=== PATIENT | female | born 1950 | race Hispanic/Latino ===

== ENCOUNTER 2018-07-18 17:26 | Inpatient (IN) | payer MEDICARE ==
[~2018-07-18] VITALS: Ht 154.9 cm; Wt 48.8 kg
[2018-07-18] MEDS ORDERED: MORPHINE SULFATE 2 MG/ML 1ML SYG ONE ×2 (19:00→20:09)
[2018-07-18] MEDS ORDERED: ONDANSETRON HCL 4 MG/2 ML VIAL IV PRN (19:30)
[2018-07-18] MEDS ORDERED: MORPHINE SULFATE 2 MG/ML 1ML SYG IV PRN (19:30)
[2018-07-18] MEDS ORDERED: ONDANSETRON HCL 4 MG/2 ML VIAL ONE (20:08)
[2018-07-18] MEDS ORDERED: ZIPRASIDONE MESYLATE 20 MG/VIAL IM ONE (21:07)
[2018-07-18 21:40] VITALS: BP 104/52
[2018-07-18] MEDS ORDERED: TRAZ-185 PO (21:58)
[2018-07-18] MEDS ORDERED: DONE10TA8 PO (21:58)
[2018-07-18] MEDS ORDERED: MEMA10TA11 PO (21:58)
[2018-07-18 22:02] LABS: BASOPHILS % (AUTO) 0.8 % (0.0-5.0); EOSINOPHILS % (AUTO) 0.6 % (0.0-8.0); HEMATOCRIT 36.1 % (36-48); LYMPHOCYTES % (AUTO) 15.3 % (21.0-51.0); MEAN CORPUSCULAR HEMOGLOBIN 31.3 pg (27.0-33.0); MEAN CORPUSCULAR HGB CONC 33.8 g/dL (32.0-36.0); MEAN CORPUSCULAR VOLUME 92.6 fL (79-99); MONOCYTES % (AUTO) 7.8 % (3.0-13.0); NEUTROPHILS % (AUTO) 75.5 % (40.0-77.0); PLATELET COUNT (AUTO) 148 K/uL (130-400); RED CELL DISTRIBUTION WIDTH 14.2 % (11.0-15.5); WHITE BLOOD COUNT (AUTO) 7.4 K/uL (4.8-10.8)
[2018-07-18 22:09] LABS: CREATININE 0.7 mg/dL (0.5-1.5); POTASSIUM 3.6 mmol/L (3.5-5.1)
[2018-07-18] MEDS ORDERED: TRAZODONE HCL 50 MG TAB ONE (22:53)
[2018-07-18 23:15] VITALS: BP 127/58
[2018-07-19 03:20] VITALS: BP 141/64
[2018-07-19 07:48] LABS: MEAN CORPUSCULAR HEMOGLOBIN 32.3 pg (27.0-33.0); MEAN CORPUSCULAR HGB CONC 34.4 g/dL (32.0-36.0); MEAN CORPUSCULAR VOLUME 93.8 fL (79-99); PLATELET COUNT (AUTO) 132 K/uL (130-400); RED BLOOD CELL COUNT(AUTO) 3.94 MIL/uL (4.00-5.50); RED CELL DISTRIBUTION WIDTH 14.2 % (11.0-15.5); WHITE BLOOD COUNT (AUTO) 5.7 K/uL (4.8-10.8)
[2018-07-19 08:29] LABS: ALBUMIN 3.8 g/dL (3.5-5.0); BILIRUBIN,TOTAL 0.5 mg/dL (0.2-1.0); CREATININE 0.7 mg/dL (0.5-1.5); POTASSIUM 3.3 mmol/L (3.5-5.1); TOTAL PROTEIN, SERUM 7.3 g/dL (6.0-8.3)
[2018-07-19 09:06] VITALS: BP 133/75
[2018-07-19] MEDS: MEMANTINE HCL 5 MG TABLET PO SCH ×2 (09:16→23:10)
[2018-07-19] MEDS: DONEPEZIL HCL 5 MG TAB PO SCH (09:16)
[2018-07-19] MEDS: ENOXAPARIN SODIUM 30 MG/0.3 ML SQ SCH (09:17)
[2018-07-19] MEDS: ACETAMINOPHEN 325 MG TAB PO PRN ×2 (09:28→13:44)
[2018-07-19 11:11] VITALS: BP 135/80
[2018-07-19 16:08] VITALS: BP 140/79
--- NOTE | 2018-07-19 16:45 | NUR ---
DCP CM met with pt discussed dc plans. Pt is independent prior to admission, lives at home with spouse and daughter. Denies any equipments/services. Pt feels safe to go back home, spouse and daughter able to assist with transportation and needs as necessary. DC plan to home once stable. CM to cont to follow up. Addendum: 07/19/18 at 1647 by ISMAEL DESHPANDE LVN CM Amended: Links added.
[2018-07-19 19:00] VITALS: BP 157/72
--- NOTE | 2018-07-19 19:55 | NUR ---
ELKIN ATTEMPTED TO PERFORM EKG PER MD ORDER. PT BECAME AGGRESSIVE, PUNCHING AND YELLING AT MILL STENCILER, PT ALSO HITTING SPOUSE AT BEDSIDE WHILE HE TRIED TO TALK TO HER ATTEMPTING TO CALM HER DOWN. MD BALTAZAR WENT IN TO SEE PT, NEW ORDERS RECEIVED (REFER TO EMR). Addendum: 07/19/18 at 2119 by FATEMEH ATKINS RN Amended: Links added.
[2018-07-19] MEDS ORDERED: HALOPERIDOL LACTATE 5 MG/ML VIAL IM PRN (20:00)
[2018-07-19] MEDS ORDERED: DiphenhydrAMINE HCL 50 MG/ML VIAL IM PRN (20:00)
[2018-07-19] MEDS ORDERED: TRAZODONE HCL 50 MG TAB PO SCH (21:00)
[2018-07-19] MEDS: ACETAMINOPHEN-CODEINE 300/30MG TAB PO PRN (23:10)
[2018-07-20] VITALS (21 sets, daily range): BP systolic 84–176; BP diastolic 47–87
--- NOTE | 2018-07-20 | NUR ---
PT REFUSED VITALS, PT IS AGITATED AND C/O PAIN AT THIS TIME. REFER TO eMAR FOR PAIN MEDICATION ADMINISTRATION 07/19/18 AT 2310.
[2018-07-20] MEDS ORDERED: LIDOCAINE HCL-MPF 1% 2ML VIAL IVP PRN (06:45)
[2018-07-20] MEDS ORDERED: POTASSIUM CHLORIDE 20MEQ/100ML 100 ML IV PRN (06:45)
[2018-07-20] MEDS: ENOXAPARIN SODIUM 30 MG/0.3 ML SQ SCH (08:00)
[2018-07-20] MEDS: MEMANTINE HCL 5 MG TABLET PO SCH (08:00)
[2018-07-20] MEDS: DONEPEZIL HCL 5 MG TAB PO SCH (08:00)
--- NOTE | 2018-07-20 14:00 | NUR ---
TO SURGERY PATIENT TRANSPORTED TO OR HOLDING ACCOMPANIED BY DR. STRICKLAND.
[2018-07-20] MEDS ORDERED: MIDAZOLAM HCL 1 MG/ML 2ML VIAL ONE (14:03)
[2018-07-20] MEDS ORDERED: FENTANYL CITRATE PF 50 MCG/1 ML 2ML VIAL ONE (14:04)
[2018-07-20] MEDS ORDERED: PROPOFOL 10 MG/ML 20ML VIAL IV ONE (14:09)
[2018-07-20] MEDS ORDERED: SODIUM CHLORIDE 0.9% 1000ML 1,000 ML IV SCH (14:24)
[2018-07-20] MEDS ORDERED: ACETAMINOPHEN EXTRA STRENGTH 500 MG TABLET PO SCH (14:30)
[2018-07-20] MEDS ORDERED: CALCIUM CARBONATE 500 MG TABLET PO PRN (14:30)
--- NOTE | 2018-07-20 15:35 | NUR ---
POST SURGERY PATIENT RECEIVED FROM PACU VIA HOSPITAL BED. SPOUSE IS IN ROOM. NO SIGNS OF DISTRESS NOTED. SHE HAS A CAST TO THE LEFT ARM HELD IN PLACE WITH A SLING. POST OP V/S HAVE BEEN INITIATED. WILL CONTINUE TO MONITOR.
[2018-07-20] MEDS: ACETAMINOPHEN-CODEINE 300/30MG TAB PO PRN (17:05)
[2018-07-20] MEDS ORDERED: TRAM50TA4 PO (18:42)
--- NOTE | 2018-07-20 19:30 | NUR ---
PT DISCHARGED AT THIS TIME, DISCHARGE INSTRUCTIONS GIVEN TO PT SPOUSE. PT WITH SLING TO LT UPPER EXTREMITY. INSTRUCTED TO MAINTAIN CLEAN, DRY AND ELEVATED. PT AND SPOUSE VERBALIZES UNDERSTANDING. PRESCRIPTION FOR PAIN MEDICATION GIVEN TO PT SPOUSE. IV CATHETER REMOVED, CATHETER TIP INTACT.
[2018-07-21] MEDS ORDERED: POLYETHYLENE GLYCOL 3350 17 GM POWD.PACK PO SCH (09:00)
[2018-07-21] MEDS ORDERED: PSYLLIUM SEED 1 EACH PACKET PO SCH (12:00)
[2018-07-22] MEDS ORDERED: BISACODYL 5 MG TABLET.DR PO PRN (14:30)
[2018-07-23] MEDS ORDERED: BISACODYL 10 MG SUPP.RECT RC PRN (14:30)
== END 2018-07-20 19:40 | disposition home or self-care (01) | DRG 563 ==
LOC: EDH 17:26 → EDHIP 19:16 → 4AH 20:23 → 4BH 20:51
PROVIDERS: ADMIT Family Medicine; ATTEND Family Medicine
PROC: 0PSJXZZ Reposition Left Radius, External Approach (ICD-10-PCS; principal; 2018-07-20 14:14)
DX: S52.552A Other extraarticular fracture of lower end of left radius, initial encounter for closed fracture (principal); I10 Essential (primary) hypertension; G30.9 Alzheimer's disease, unspecified; F02.80 Dementia in other diseases classified elsewhere, unspecified severity, without behavioral disturbance, psychotic disturbance, mood disturbance, and anxiety; F17.210 Nicotine dependence, cigarettes, uncomplicated; W01.0XXA Fall on same level from slipping, tripping and stumbling without subsequent striking against object, initial encounter; S52.612A Displaced fracture of left ulna styloid process, initial encounter for closed fracture; Z83.3 Family history of diabetes mellitus; Z82.49 Family history of ischemic heart disease and other diseases of the circulatory system; Y93.89 Activity, other specified; Y99.8 Other external cause status; Y92.009 Unspecified place in unspecified non-institutional (private) residence as the place of occurrence of the external cause
CPT/HCPCS: 36415; 71045; 73080; 73110; 80048; 80053; 85025; 85027; 93005; A4565; G0378; J1200; J1630; J1650; J2250; J2405; J2704; J3010; J3480; J3486; J3490

== ENCOUNTER 2018-08-23 12:19 | Emergency (ER) | payer MEDICARE ==
[~2018-08-23 12:19] MED LIST: DONE10TA8 PO; MEMA10TA11 PO; TRAM50TA4 PO; TRAZ-185 PO
== END 2018-08-23 12:31 | disposition home or self-care (01) ==
LOC: EDH 12:19
DX: Z47.89 Encounter for other orthopedic aftercare (principal); F03.90 Unspecified dementia, unspecified severity, without behavioral disturbance, psychotic disturbance, mood disturbance, and anxiety; Z72.0 Tobacco use
CPT/HCPCS: 99281

== ENCOUNTER 2018-09-03 09:28 | Emergency (ER) | payer MEDICARE | END 2018-09-03 09:56 | disposition home or self-care (01) | LOC: EDH 09:28 | DX: Z47.89 Encounter for other orthopedic aftercare (principal); Z87.891 Personal history of nicotine dependence | CPT/HCPCS: 99281 ==